=== PATIENT | female | born 1975 | race Caucasian/White ===

== ENCOUNTER 2016-10-22 19:16 | Emergency (ER) | payer MEDICARE, OTHER ==
--- NOTE | ~2016-10-22 | CR72 ---
[facility] A Service of [facility] & [facility] RADIOLOGY TEXT RESULTS PATIENT: JOSÉ MIGUEL CANNON LOCATION: [facility] : 77 UNIT #: [id number] AGE: [address]: Lauren Naranjo MD SEX: F ORDER DR: [id number] [facility] [address] [place], [place] [address] [id number] MR#: [id number] Acc #: [id number] NAME: JOSÉ MIGUEL CANNON. : 1975 SEX: F STUDY DATE/TIME: 10/22/2016 21:40 UNIT: [facility] ROOM: STUDY DESCRIPTION: CR Chest Single View Portable Attending Physician: Lauren Naranjo M.D. Ordering Physician: Lauren Naranjo M.D. Primary Care Physician: Yovani Goodrich M.D. MEDICAL IMAGING REPORT This report is preliminary unless electronic signature is present EXAM Portable chest 10/22/2016. HISTORY Upper chest pain bilaterally with cough beginning this morning. FINDINGS A single AP portable view of the chest shows both lungs to be clear. The heart is normal in size. The mediastinal contour is normal. No significant bone abnormalities are seen. IMPRESSION Normal portable chest. Dictated by... Jesus Brown M.D. THIS IS AN ELECTRONICALLY VERIFIED REPORT Jesus Brown M.D. at 10/23/2016 2:15 PM KRT/gz TD: 10/23/2016 11:09 JOB #: [id number] MEDICAL IMAGING REPORT Page 1 of 1 COPY
--- NOTE | ~2016-10-22 | EKG ---
PATIENT: JOSÉ MIGUEL CANNON UNIT #: [id number] Ventricular Rate: 81 BPM Atrial Rate: 81 BPM P-R Interval: 126 ms QRS Duration: 82 ms Q-T Interval: 370 ms QTC Calculation(Bezet): 429 ms P [place]: 61 degrees Calculated R [place]: 38 degrees Calculated T [place]: 28 degrees Diagnosis Line: Normal sinus rhythm Diagnosis Line: Normal ECG Diagnosis Line: When compared with ECG of 17-JUN-2015 10:12, Diagnosis Line: No significant change was found Diagnosis Line: Confirmed by BUDDY YIN MD ([id number]) on Diagnosis Line: 10/23/2016 5:08:06 PM INTERPRETING MD: ANNAMARIA GILMORE
[~2016-10-22 19:16] MED LIST: BACTRIM DS TABL1 TA2 PO; IBUPROFEN; LORTAB 7.51 TAB PO; NO MEDICATIONS
[2016-10-22 21:57] LABS: URINE SOURCE CLEAN CATCH
[2016-10-22 22:03] LABS: URINE APPEARANCE CLEAR; URINE BILIRUBIN NEG (NEG); URINE BLOOD NEG (NEG); URINE COLOR YELLOW; URINE GLUCOSE NEG (NEG); URINE KETONE NEG (NEG); URINE LEUKOCYTE ESTERASE 1+ (NEG); URINE NITRATE NEG (NEG); URINE PH 5.5 (5-8); URINE PROTEIN NEG (NEG); URINE SPECIFIC GRAVITY 1.023 (1.003-1.035); URINE UROBILINOGEN 0.2 MG/DL (NEG)
[2016-10-22 22:08] LABS: CULTURE INDICATED? YES; URINE BACTERIA AUWI 1+ (NEGATIVE); URINE SQUAMOUS EPITHELIAL CELL OCC /[HPF]
[2016-10-22 22:12] LABS: AMPHETAMINE NEG (NEG); BARBITURATES NEG (NEG); BENZODIAZEPINES NEG (NEG); COCAINE NEG (NEG); MARIJUANA NEG (NEG); OPIATES NEG (NEG); TRICYCLIC ANTIDEPRESSANTS NEG (NEG); U METHADONE NEG (NEG)
[2016-10-22 23:26] LABS: POC - CKMB <1.0 ng/mL (0.0-7.9); POC - TROPONIN <0.05 ng/mL (<=0.05)
[2016-10-23] LABS: POC - CKMB <1.0 ng/mL (0.0-7.9); POC - TROPONIN <0.05 ng/mL (<=0.05)
== END 2016-10-22 23:57 | disposition home or self-care (01) ==
LOC: CED 19:16
PROVIDERS: Emergency Medicine
DX: R07.89 Other chest pain (principal)
CPT/HCPCS: 36415; 71010; 80307; 81003; 82553; 83690; 84484; 85379; 87086; 93005; 99285